=== PATIENT | male | born 1985 | race Caucasian/White ===

== ENCOUNTER 2016-05-10 01:42 | Emergency (ER) | payer OTHER ==
[2016-05-10] MEDS ORDERED: MORPHINE SULFATE 4 MG/ML SYRINGE ONE (02:58)
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
== END 2016-05-10 03:53 | disposition home or self-care (01) ==
LOC: ED 01:42
DX: S82.832A Other fracture of upper and lower end of left fibula, initial encounter for closed fracture (principal); W03.XXXA Other fall on same level due to collision with another person, initial encounter; Y93.41 Activity, dancing; Y92.838 Other recreation area as the place of occurrence of the external cause
CPT/HCPCS: 73610; 99283; 29515; 96372; 99284; J2270